=== PATIENT | female | born 1960 | race Caucasian/White ===

== ENCOUNTER → 2023-05-03 08:16 | Outpatient (REF) | payer OTHER, SELFPAY | LOC: EMG 08:16 | PROVIDERS: ATTENDING PHYSICIAN Orthopaedic Surgery Hand Surgery; FAMILY PHYSICIAN Internal Medicine | DX: R20.0 Anesthesia of skin (principal) | CPT/HCPCS: 95886; 95909 ==

== ENCOUNTER → 2023-06-01 08:53 | Outpatient (REF) | payer OTHER, SELFPAY | LOC: RAD 08:53 | PROVIDERS: ATTENDING PHYSICIAN Internal Medicine; REFERRING PHYSICIAN Internal Medicine Cardiovascular Disease | DX: R05.3 Chronic cough (principal) | CPT/HCPCS: 71046 ==

== ENCOUNTER 2023-07-15 08:05 | Emergency (ER) | payer OTHER, SELFPAY ==
[2023-07-15 08:07] VITALS: BP 130/98
--- NOTE | 2023-07-15 08:23 | ED.GENMED ---
History of Present Illness
General
Chief Complaint: DVT/Possible Blood Clot
Time Seen by Provider: 07/15/23 08:11
Travel History
Have you had any contact with someone who has COVID-19?: No
Do you have any symptoms of coronavirus? Fever > 100 degrees, chills, cough, shortness of breath, sore throat, loss of taste or smell, muscle aches, or headache?: No
History of Present Illness
History of Present Illness:
64-year-old female presents to the emergency department for evaluation of persistent left calf pain that began to travel to [place]. She states the pain has not resolved after the and is tender to touch. She does note that after flying she developed
significant edema of the hands and lower extremities bilaterally took occasional doses of diuretics to improve this. She reports feeling short of breath while exerting herself in [place] but this is resolved upon returning to the [facility]. No
history of PE or DVT
Past History
Past History
ED Past Medical History: CAD, Hypercholesterolemia and Other (Migraines, irritable bowel syndrome)
ED Past Surgical History: Cardiac
Social History
Tobacco: Former smoker
Alcohol: None
Drug: None
Personal:
Living: with family
Review of Systems
Review of Systems
Allergies reviewed?: Yes
All Other Systems: ROS reviewed and negative except as documented in HPI and ROS
Phy Exam
Physical Exam
Physical Exam:
GEN: Well appearing, NAD, WDWN
HEENT: Oral mucosa moist, no scleral icterus
Cardiac: Regular rate
Lung: No respiratory distress, no tachypnea
MSK: No gross deformity or injuries. Mild tenderness to the left calf with no obvious left lower extremity edema however right lower extremity edema 1+ is noted, right dorsalis pedis pulses 2+ bilaterally
Skin: Good color, no pallor or jaundice, no rashes
Neuro: AO x3, moves all extremities freely
Psych: Calm, cooperative
Course
Orders/Labs/Results
Orders:
Orders
07/15/23 08:22
Venous Doppler Lwr Ext Bilat [US Periph Venous LOWER Ext Ishmael] Urgent
Comment:
Reason For Exam: leg edema, calf pain, recent travel
Vital Signs
Initial and Last Documented VS:
Initial Vital Signs
Temp Pulse Resp BP Pulse Ox
97.8 F 87 16 130/98 97
07/15/23 08:07 07/15/23 08:07 07/15/23 08:07 07/15/23 08:07 07/15/23 08:07
Last Documented Vital Signs
Temp Pulse Resp BP Pulse Ox
97.8 F 74 13 120/83 97
07/15/23 08:07 07/15/23 09:30 07/15/23 09:30 07/15/23 09:06 07/15/23 09:30
MDM/Problems Addressed
MDM/Problems Addressed:
Doppler ultrasounds negative for DVT. Likely asymmetric lower extremity edema
*Critical Care Note
Total Time (30-74mins, 75-104mins- exclusive of procedures): Not Applicable
ED Attending Note
-
Portions of this chart may have been created with voice recognition software.� Occasional wrong word or��sound alike� substitutions may have occurred due to the inherent limitations of voice recognition software.
Discharge Plan
Departure
Patient Disposition: Home (Routine Discharge)
Date of Disposition: 07/15/23
Time of Disposition: 09:28
Patient with high blood pressure during this ER visit?: No
Discharge Problem:
Pain of left calf
Instructions: Muscle Strain ED
Prescriptions:
No Action
aspirin 81 MG tablet,delayed release (DR/EC)
81 mg PO DAILY
losartan 25 MG tablet
50 mg PO DAILY
ezetimibe 10 MG tablet
10 mg PO DAILY
levothyroxine 88 mcg Tablet
88 mcg PO DAILY
Systane Complete 0.6 % Drops
1 drp BOTH EYES PRN PRN (Reason: dry eyes)
Repatha SureClick 140 mg/mL Pen Injector
140 mg SC Q2W
amoxicillin-pot clavulanate 875-125 mg tablet
1 tab PO BID Qty: 14 0RF
Referrals:
Letitia Campbell MD [Family Provider] -
Interventions
Interventions:
*Risk Screen - Suicide Last Done: 07/15/23 08:27
*General Assessment Last Done: 07/15/23 08:27
*Neglect/Abuse Screening Last Done: 07/15/23 08:27
ED- Fall Risk Assessment Last Done: 07/15/23 08:25
*ED COVID-19 Vaccine History Last Done: 07/15/23 08:25
*Nursing Disposition Last Done: 07/15/23 09:38
ED- Cardiac Assessment Last Done: 07/15/23 08:28
ED- Pulmonary Assessment Last Done: 07/15/23 08:28
ED-Peripheral Vascular Assessment Last Done: 07/15/23 08:34
ED-Skin Assessment Last Done: 07/15/23 08:28
Discharge Date and Time
Discharge Date/Time: 07/15/23 09:38
Print Language: ITALIAN
[2023-07-15 08:25] VITALS: BMI 30.6
[2023-07-15 08:30] VITALS: BP 128/86
[2023-07-15 09:06] VITALS: BP 120/83
== END 2023-07-15 09:38 | disposition home or self-care (01) ==
LOC: EMR 08:05
PROVIDERS: EMERGENCY PHYSICIAN Emergency Medicine; FAMILY PHYSICIAN Internal Medicine
DX: M79.662 Pain in left lower leg (principal); Z87.891 Personal history of nicotine dependence
CPT/HCPCS: 99284; 93970

== ENCOUNTER → 2023-12-05 07:08 | Outpatient (REF) | payer OTHER, SELFPAY | LOC: DHCBC/DCA 07:08 | PROVIDERS: ATTENDING PHYSICIAN Internal Medicine Cardiovascular Disease; FAMILY PHYSICIAN Family Medicine | DX: R07.89 Other chest pain (principal); I25.10 Atherosclerotic heart disease of native coronary artery without angina pectoris | CPT/HCPCS: 78452; 93017; A9500 ==

== ENCOUNTER → 2024-01-03 12:00 | Outpatient (REF) | payer OTHER, SELFPAY | LOC: DHSLP 12:00 | PROVIDERS: ATTENDING PHYSICIAN Internal Medicine Cardiovascular Disease; FAMILY PHYSICIAN Family Medicine | DX: G47.33 Obstructive sleep apnea (adult) (pediatric) (principal) | CPT/HCPCS: 95800 ==

== ENCOUNTER → 2024-05-02 12:42 | Outpatient (REF) | payer OTHER, SELFPAY | LOC: RAD 12:42 | PROVIDERS: ATTENDING PHYSICIAN Family Medicine | DX: M79.661 Pain in right lower leg (principal) | CPT/HCPCS: 93971 ==

== ENCOUNTER → 2024-11-26 11:43 | Outpatient (REF) | payer OTHER, SELFPAY | LOC: RAD 11:43 | PROVIDERS: ATTENDING PHYSICIAN Family Medicine | DX: R07.81 Pleurodynia (principal) | CPT/HCPCS: 71101 ==